=== PATIENT | male | born 1965 | race Caucasian/White ===

== ENCOUNTER → 2020-01-22 08:53 | Outpatient (CLI) | payer OTHER, SELFPAY ==
--- NOTE | 2020-01-22 09:02 | XR_ITS ---
PROCEDURE: XR FOOT WT BEARING LT 3V CLINICAL INDICATION: pain COMPARISON: No exams were available for comparison FINDINGS: No fracture or dislocation. No lytic or blastic change. There is normal mineralization. There are osteoarthritic changes of the 1st metatarsophalangeal joint, talonavicular joint, and navicular cuneiform joint. There is a small calcaneal spur and there is a prominent posterior talar process. There is mild pes planus. Other findings:None. IMPRESSION: Degenerative changes as described above Dictated by: Jace Nova MD 01/22/2020 15:56 Electronically signed by Jace Nova MD in [place] 01/22/2020 15:56
--- NOTE | 2020-01-22 09:02 | XR_ITS ---
PROCEDURE: XR FOOT WT BEARING RT 3V CLINICAL INDICATION: pain COMPARISON: No exams were available for comparison FINDINGS: No fracture or dislocation. No lytic or blastic change. There is normal mineralization. Mild osteoarthritic change 1st metatarsophalangeal joint and navicular cuneiform joint. Enthesophyte is noted at the Achilles insertion Other findings:None. IMPRESSION: Mild degenerative changes Dictated by: Jace Nova MD 01/22/2020 15:57 Electronically signed by Jace Nova MD in [place] 01/22/2020 15:57
== END ==
PROVIDERS: PCP Family Medicine; Visit Provider Podiatrist
DX: M79.672 Pain in left foot (principal); M79.671 Pain in right foot
CPT/HCPCS: 73630

== ENCOUNTER → 2021-04-25 08:58 | Outpatient (POV) | payer OTHER, SELFPAY ==
[2021-04-25 09:35] VITALS: BP 183/100; PULSE 98; RESP 18; O2SAT 95; BMI 39.7
--- NOTE | 2021-04-25 09:48 | HMH.PMCON ---
Assessment and Plan (1) Low back pain Status: Acute Category: Medical Code(s): M54.5 - Low back pain (2) Right flank pain Status: Acute Category: Medical Code(s): R10.9 - Unspecified abdominal pain - Assessment and plan all Dx Assessment and Plan for all problems:: We did contact [facility] for the patient's MRI report. Patient has not had an MRI of his lumbar spine. He has had an MRI of his abdomen which does show the patient to have cholelithiasis along with severe right renal atrophy with small renal cysts right. I will contact the patient regarding his imaging. The patient may benefit from undergoing an MRI of his lumbar spine. He does have a positive Kemps test today. He is having pain with leaning forward and with extension and twisting at waist. We did discuss medial branch blocks today. Given an MRI positive for facet spondylosis or arthritis, he may need worked up for possible injective therapy. He has been advised that the clinic can offer him interventional therapies, however, we are unable to offer him any oral medications. He is also been advised of risks of oral medications with his renal insufficiency. Patient has been instructed to contact the clinic with any concerns before the next appointment. Dr. Gunderson has reviewed this note and agrees with this plan of care. This note was dictated using voice recognition software and make contain errors or omissions. HPI - Data of Consult Patient: new to practice (NARENDRA) Consult date: 04/25/21 Requesting Physician: Ellie Muñoz APRN - Consult Narrative Reason for consult: Right low back and right flank pain History of present illness: Mr. Gilmore is a 56 year old male who presents today for consultation for chronic right low back and right flank pain. Patient reports that he began to develop severe right low back pain in March. He did go to an urgent treatment center, for which she was sent to [facility] due to elevated blood pressure. Patient says that due to conflicting lab work, he was then sent to [facility]. He reports that he had hypertensive urgency. He was also tested for Covid at that time. Patient says that he was positive for Covid and did spend 10 days under quarantine at [facility]. Since then, he reports that he has had an MRI of his lumbar spine which was performed at [facility]. He did not bring a record of his MRI with him today. He also reports he is scheduled for an ultrasound on 09 May of his right kidney. Patient has been told he is prediabetic. The patient says his pain is in his right low back area, right flank which is worse with bending forward and turning or twisting at his waist. He says the pain is excruciating to the point he is unable to tie his shoes. He says that the pain does not subside with standing, walking, or sitting. He is requesting oral medications today. Patient says would it be easier to give me painkillers . Patient was seen at a pain management center in [facility] for which he reports he did not receive a call back from the clinic, and therefore, did not follow-up with him. The patient's pain is progressively worsening. The pain is dull and deep in nature. Patient does say he has requested oral medications from his primary care provider, however, he says he is reluctant to give him any medication. CC: Ellie Muñoz APRN [facility] History I have reviewed the patient's past medical history: Yes Medical History: Reports:: Deep Vein Thrombosis, Diabetes Mellitus Type 2, Hiatal Hernia, Kidney Stones *Have you ever received a pneumonia vaccine?: No *Have you received a flu vaccine this season?: No Other Surgeries: Yes: Colostomy, Hernia Repair - *Social History Smoking Status: Never smoker Alcohol Intake: current Alcohol Intake Frequency:: a few times a month *Occupational Status:: employed *Travel in the
== END ==
PROVIDERS: Visit Provider Clinical Nurse Specialist Family Health
DX: M54.5 Low back pain (principal); R10.9 Unspecified abdominal pain
CPT/HCPCS: 99202; G0463

== ENCOUNTER → 2021-05-03 15:15 | Outpatient (CLI) | payer OTHER, SELFPAY ==
--- NOTE | 2021-05-03 15:18 | MR_ITS ---
PROCEDURE: MR LUMBAR SPINE WO CON CLINICAL INDICATION: BACK PAIN Right-sided low back pain, intermittent left leg and numbness and tingling COMPARISON: No exams were available for comparison TECHNIQUE: Standard multiplanar multiecho sequences are performed without contrast. 3-D MIP and myelographic images are also rendered and reviewed FINDINGS: There is normal alignment. Spinal cord ends at the T12 level. T11-T12: Mild degenerative disc disease with anterior and right lateral osteophytes T12-L1: Unremarkable. L1-L2: Mild facet hypertrophic changes with mild left-sided foraminal narrowing. Mild left lateral recess narrowing. L2-L3: Severe facet and ligamentum hypertrophy with severe bilateral lateral recess narrowing and canal stenosis of 5 mm. There is compression of the thecal sac and nerve roots from the severe facet and ligamentum hypertrophy. There is mild bilateral lateral recess narrowing. There is 3 mm anterolisthesis of L2 on L3. L3-L4: Moderate to severe facet and ligamentum hypertrophy with canal stenosis of 6 mm with severe bilateral lateral recess narrowing. There is compression upon the thecal sac and underlying nerve roots from the facet and ligamentum hypertrophy. There is mild bilateral foraminal narrowing. L4-5: Decrease in the disc space with mild disc desiccation. This could be congenital or due to degenerative changes. L5-S1: There is a transitional segment at the lumbosacral junction and is labeled as L5 on this exam. Any intervention should be taking this into account as this could represent an S1 vertebral body. IMPRESSION: NOTE: THERE IS A TRANSITIONAL SEGMENT AT THE LUMBOSACRAL JUNCTION AND IS LABELED L5. PLEASE TAKE INTO ACCOUNT IF ANY INTERVENTION IS CONTEMPLATED. 1. L1-L2: Mild facet hypertrophic changes with mild left-sided foraminal narrowing. Mild left lateral recess narrowing. 2. L2-L3: Severe facet and ligamentum hypertrophy with severe bilateral lateral recess narrowing and canal stenosis of 5 mm. There is compression of the thecal sac and nerve roots from the severe facet and ligamentum hypertrophy. There is mild bilateral lateral recess narrowing. There is 3 mm anterolisthesis of L2 on L3. 3. L3-L4: Moderate to severe facet and ligamentum hypertrophy with canal stenosis of 6 mm with severe bilateral lateral recess narrowing. There is compression upon the thecal sac and underlying nerve roots from the facet and ligamentum hypertrophy. There is mild bilateral foraminal narrowing. 4. L4-5: Decrease in the disc space with mild disc desiccation. This could be congenital or due to degenerative changes. 5. L5-S1: There is a transitional segment at the lumbosacral junction and is labeled as L5 on this exam. Any intervention should be taking this into account as this could represent an S1 vertebral body 6. No extruded herniated disc. Dictated by: Jace Nova MD 05/04/2021 15:07 Jace Nova MD in [place] 05/04/2021 15:07
== END ==
PROVIDERS: PCP Family Medicine; Visit Provider Clinical Nurse Specialist Family Health
DX: M54.5 Low back pain (principal)
CPT/HCPCS: 72148; 76376

== ENCOUNTER → 2021-05-23 14:53 | Outpatient (POV) | payer OTHER, SELFPAY ==
[2021-05-23 15:20] VITALS: BP 170/90; PULSE 108; RESP 18; BMI 32.5
--- NOTE | 2021-05-24 08:12 | P.CONS_ITS ---
[facility] Pain Management SOAP Note Subjective:: Patient is a 56-year-old white male who presents today for MRI review. Patient was referred to us for chronic back pain. At first visit, the patient did report that he had undergone imaging of his lumbar spine, however, after further investigation, it was noted that the patient had an abdominal MRI at [facility]. We did order a MRI of his lumbar spine. Patient is here today to review it. He is having pain in his low back area with radiation into bilateral lower extremities. He has pain when he is leaning forward and with extension and twisting at his waist. He did have a positive Kemps test at his initial visit. He is accompanied by his family member today. He does rate his pain at 9 out of 10 today. He says that he has tried physical therapy in the past for greater than 6 weeks with no significant relief. He has tried anti- inflammatories and is also tried home stretching. Patient does continue with ice and heat therapies. Review of Systems General: No recent weight changes, no fever, no sleep disturbances Respiratory: No cough, no shortness of air, no recurring pulmonary infections Cardiovascular/peripheral vascular: No chest pain, no palpitations, no edema, no shortness of breath Gastrointestinal: No new onset incontinence, normal bowel movements reported Genitourinary: No new onset incontinence Musculoskeletal: Low back pain worse with bending forward and extension at waist Psychiatric: [Normal mood/affect] Neurological: [Denies weakness in extremities], [denies balance issues] Objective:: Physical exam General: Alert and oriented x3, no acute distress, pleasant and cooperative Lungs: Respirations even and unlabored, symmetrical chest expansion Eyes: PERRL Musculoskeletal: Flexion and extension of lumbar [spine] somewhat guarded secondary to pain, [antalgic gait noted], positive Kemps test Neurological: Speech clear, no gross sensory deficit Assessment:: 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 He was given a copy of his imaging. We will schedule the patient for medial branch block/facet joint injection at L4-L5 L5-S1. He does have a positive Kemps test. Of note, per the MRI report There is a transitional segment at the lumbosacral junction and is labeled as L5 on this exam. Any intervention should be taking this into account as this could represent an S1 vertebral body . Patient is not on any anticoagulation therapy. He does report to be prediabetic. We will see the patient back in the clinic after his injection for reevaluation symptoms. He has tried a lumbar epidural steroid injection in the past and got no significant relief. He will continue with home stretching. [facility] History I have reviewed the patient's past medical history: Yes Medical History: Reports:: Deep Vein Thrombosis, Diabetes Mellitus Type 2, Hiatal Hernia, Kidney Stones *Have you ever received a pneumonia vaccine?: No *Have you received a flu vaccine this season?: No Other Surgeries: Yes: Colostomy, Hernia Repair - *Social History Smoking Status: Never smoker Alcohol Intake: current Alcohol Intake Frequency:: a few times a month *Occupational Status:: employed *Travel in the last 8 weeks: None Family Hx:: Heart Attack
== END ==
PROVIDERS: Visit Provider Clinical Nurse Specialist Family Health
DX: M51.36 Other intervertebral disc degeneration, lumbar region (principal); M47.816 Spondylosis without myelopathy or radiculopathy, lumbar region; M54.06 Panniculitis affecting regions of neck and back, lumbar region
CPT/HCPCS: 99212; G0463

== ENCOUNTER 2021-06-03 08:38 | Day surgery (SDC) | payer OTHER, SELFPAY ==
[2021-06-03 08:54] VITALS: BP 180/114; PULSE 87; RESP 20; TEMP 36.6; O2SAT 94; BMI 40.1
[2021-06-03 09:18] VITALS: BP 184/112; PULSE 88; RESP 20; O2SAT 96
[2021-06-03 09:19] VITALS: BP 188/111; PULSE 87; RESP 20; O2SAT 93
--- NOTE | 2021-06-03 09:27 | HMH.PMPROC ---
- Procedure Date: 06/03/21 Time: 09:27 Anesthesiologist:: Michael Gunderson MD Complications:: None Pre-procedure Diagnosis:: Degenerative disc disease of lumbar spine with lumbar facet arthropathy and spondylosis Post-procedure Diagnosis:: Same Indications for Procedure:: Patient is a pleasant 56-year-old white male who we are treating for low back pain with lumbar spondylosis and lumbar facet arthropathy. He has increased pain with twisting and extension. He is tender over the facet joints of L4-5 and L5-S1 bilaterally. We will plan on bilateral lumbar medial branch block/facet joint injections of L4-5 and L5-S1 today. Procedure Details:: Lumbar medial branch block Informed consent was obtained and the risks and benefits of the procedure was explained to the patient. The back was prepped using ChloraPrep. The skin and subcutaneous tissues were anesthetized using lidocaine. I placed 22-gauge spinal needles into the facet joint/medial branches of L4-L5 and L5-S1 bilaterally. Needle placement was confirmed with dye. After this we injected 3 mL bupivacaine 0.25% and Depo-Medrol 20 mg into each facet joint/medial branch of L4-L5 and L5-S1 bilaterally. We used a total of 80 mg Depo-Medrol for both levels bilaterally. The patient tolerated the procedure well with no complications. Plan and Disposition:: We will follow-up with this patient in 2 weeks. Will reevaluate his symptoms at that time. If successful we may proceed to RF ablation of the facet joints of L4-5 and L5-S1 bilaterally.
[2021-06-03 11:32] VITALS: BP 162/114; PULSE 85; RESP 18; TEMP 36.5; O2SAT 94
== END 2021-06-03 09:30 | disposition home or self-care (01) ==
LOC: SC.PAINP 08:38
PROVIDERS: PCP Family Medicine; Visit Provider Anesthesiology
DX: M51.36 Other intervertebral disc degeneration, lumbar region (principal); M47.816 Spondylosis without myelopathy or radiculopathy, lumbar region; M54.06 Panniculitis affecting regions of neck and back, lumbar region; E11.9 Type 2 diabetes mellitus without complications; I10 Essential (primary) hypertension; N18.9 Chronic kidney disease, unspecified; M19.90 Unspecified osteoarthritis, unspecified site; Z86.718 Personal history of other venous thrombosis and embolism; Z87.442 Personal history of urinary calculi
CPT/HCPCS: 64493; 64494; J1040; Q9966

== ENCOUNTER → 2021-06-20 09:53 | Outpatient (POV) | payer OTHER, SELFPAY ==
[2021-06-20 10:39] VITALS: BP 187/90; PULSE 87; RESP 18; O2SAT 95; BMI 39.7
--- NOTE | 2021-06-20 12:40 | HMH.PAINSOAP ---
[facility] Pain Management SOAP Note Subjective:: Patient is a 56-year-old white male who presents today for follow-up after medial branch block/facet joint injections at L4-L5 L5-S1 bilaterally. Patient does have pain in his low back that is worse with twisting and extension at his waist. The pain is nonradicular. He says that he got significant relief with his injections. This was his #1 injection. He says that since the injection he has a new onset knot-like sensation in the left low back area. It is nonradicular. He says that he is much more active and able to bend and turn and twist with less pain since the injection. The pain is starting to return, however. He has gotten a week of relief. He would like to proceed with a repeat round of injections. He has tried physical therapy for more than 6 weeks and continues with home stretching. He has also tried anti-inflammatories in the past. Patient is interested in oral medications, however has been advised in the past that we are unable to provide him with oral medications. Review of Systems General: No recent weight changes, no fever, no sleep disturbances Respiratory: No cough, no shortness of air, no recurring pulmonary infections Cardiovascular/peripheral vascular: No chest pain, no palpitations, no edema, no shortness of breath Gastrointestinal: No new onset incontinence, normal bowel movements reported Genitourinary: No new onset incontinence Musculoskeletal: Low back pain worse with turning and twisting at waist Psychiatric: [Normal mood/affect] Neurological: [Denies weakness in extremities], [denies balance issues] Objective:: Physical exam General: Alert and oriented x3, no acute distress, pleasant and cooperative Lungs: Respirations even and unlabored, symmetrical chest expansion Eyes: PERRL Musculoskeletal: Flexion and extension of lumbar [spine] somewhat guarded secondary to pain, [antalgic gait noted] Neurological: Speech clear, no gross sensory deficit Assessment:: 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 Patient got approximately 80% relief for 1 week following his initial round of medial branch block/facet joint injections at the L4-L5 L5-S1 area bilaterally. He would like to proceed with the second round of injections. He is continue with home stretching and anti-inflammatories. He has tried conservative therapies physical therapy and ice and heat therapies. We will schedule him for a second round of injections bilaterally to see if he gets relief. If the patient continues to get significant relief with return of pain he has been advised he would be a candidate for RFA. We will see him back after the injection for reevaluation of symptoms. He is prediabetic and is not on anticoagulation therapy. Possible side effects of corticosteroids have been discussed with the patient. Risks and benefits of the procedure have been explained to the patient. Patient would like to proceed with the procedure. Patient has been instructed to contact the clinic with any concerns before the next appointment. Dr. Gunderson has reviewed this note and agrees with this plan of care. This note was dictated using voice recognition software and make contain errors or omissions. [facility] History I have reviewed the patient's past medical history: Yes Medical History: Reports:: Deep Vein Thrombosis, Diabetes Mellitus Type 2, Hiatal Hernia, Hypertension, Kidney Stones Denies:: Cancer, Diabetes Mellitus Type 1, MRSA, Seizures *Have you ever received a pneumonia vaccine?: No *Have you received a flu vaccine this season?: No Other Medical History: Reports: Arthritis Other Surgeries: Yes: Colostomy, Hernia Repair Amputation: No Fractures: No - *Social History Smoking Status: Never smoker Alcohol Intake: never Alcohol Intake Frequency:: a fe
== END ==
PROVIDERS: Visit Provider Clinical Nurse Specialist Family Health
DX: M51.36 Other intervertebral disc degeneration, lumbar region (principal); M47.816 Spondylosis without myelopathy or radiculopathy, lumbar region; M54.06 Panniculitis affecting regions of neck and back, lumbar region
CPT/HCPCS: 99212; G0463

== ENCOUNTER 2021-07-15 11:04 | Day surgery (SDC) | payer OTHER, SELFPAY ==
[2021-07-15 11:16] VITALS: BP 159/106; PULSE 85; RESP 20; TEMP 36.6; O2SAT 92; BMI 41.3
[2021-07-15 11:31] VITALS: BP 147/90; PULSE 86; RESP 18; O2SAT 94
[2021-07-15 11:33] VITALS: PULSE 84; RESP 18; O2SAT 93
[2021-07-15 11:42] VITALS: BP 170/103; PULSE 89; RESP 20; O2SAT 94
--- NOTE | 2021-07-15 11:57 | P.PCN_ITS ---
- Procedure Date: 07/15/21 Time: 11:57 Anesthesiologist:: Michael Gunderson MD Complications:: None Pre-procedure Diagnosis:: Degenerative disc disease of lumbar spine with lumbar spondylosis and lumbar facet arthropathy Post-procedure Diagnosis:: Same Indications for Procedure:: Patient is a pleasant 56-year-old white male who we are treating for low back pain with lumbar spondylosis and lumbar facet arthropathy. He has done well with his previous medial branch block/facet joint injections of L4-5 and L5-S1 bilaterally. He was 80 to 90% better for several days. We will do a repeat bi lateral lumbar medial branch block/facet joint injection today of L4-5 and L5- S1. Procedure Details:: Lumbar medial branch block Informed consent was obtained and the risks and benefits of the procedure was explained to the patient. The back was prepped using ChloraPrep. The skin and subcutaneous tissues were anesthetized using lidocaine. I placed 22-gauge spinal needles into the facet joint/medial branches of L4-L5 and L5-S1 bilaterally. Needle placement was confirmed with dye. After this we injected 3 mL bupivacaine 0.25% and Depo-Medrol 20 mg into each facet joint/medial branch of L4-L5 and L5-S1 bilaterally. We used a total of 80 mg Depo-Medrol for both levels bilaterally. The patient tolerated the procedure well with no complications. Plan and Disposition:: We will follow-up with him in 2 weeks. Will reevaluate symptoms at that time.
== END 2021-07-15 11:43 | disposition home or self-care (01) ==
LOC: SC.PAINP 11:05
PROVIDERS: PCP Family Medicine; Visit Provider Anesthesiology
DX: M51.36 Other intervertebral disc degeneration, lumbar region (principal); M47.816 Spondylosis without myelopathy or radiculopathy, lumbar region; M54.06 Panniculitis affecting regions of neck and back, lumbar region; I10 Essential (primary) hypertension; E11.9 Type 2 diabetes mellitus without complications; Z86.718 Personal history of other venous thrombosis and embolism; N18.9 Chronic kidney disease, unspecified; M19.90 Unspecified osteoarthritis, unspecified site
CPT/HCPCS: 64493; 64494; J1040; Q9966